=== PATIENT | male | born 1995 | race Caucasian/White ===

== ENCOUNTER 2017-07-21 13:32 | Emergency (ER) | payer OTHER ==
[~2017-07-21 13:32] MED LIST: DICL50 PO; SILV1CRE59 TOP; TRAM50 PO
[2017-07-21 13:44] VITALS: BP 135/59; PULSE 112; RESP 16; TEMP 97.6; O2SAT 100
--- NOTE | 2017-07-21 14:05 | PD ---
HPI Chief Complaint: Medical Clearance Time Seen by Provider: 14:02 Travel History International Travel<30 days: No Contact w/Intl Traveler<30days: No Traveled to known affect area: No History of Present Illness HPI 21-year-old male presents to the emergency room for evaluation of right hand pain that started earlier today. Patient is in police custody. States he was handcuffed and placed in the back of a police car. He began to beat on the back of the cage with his fists and developed pain in the right fifth metacarpal. States he has broken that bone before and it feels the same. He reports tingling around the area of pain but no distal paresthesias. He has not taken anything for symptoms. He denies any chronic medical conditions or daily medications. Up-to-date on tetanus. 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 Afebrile. Ambulatory. SKIN: Focused skin assessment warm/dry. Superficial abrasions to bilateral wrists in the distribution of the handcuffs. HEAD: Normocephalic. EYES: No scleral icterus. No injection or drainage. NECK: Supple, trachea midline. No JVD or lymphadenopathy. CARDIOVASCULAR: Regular rate and rhythm without murmurs, gallops, or rubs. RESPIRATORY: Breath sounds equal bilaterally. No accessory muscle use. MUSCULOSKELETAL: No cyanosis. No significant edema of the right hand. Full range of motion of the right hand but with pain during flexion of the fifth finger. No obvious angulation. Less than 2 second capillary refill distally. Tenderness to palpation of the right fifth metacarpal. No obvious deformity. Data Data Last Documented VS Vital Signs Date Time Temp Pulse Resp B/P (MAP) Pulse Ox O2 Delivery O2 Flow Rate FiO2 07/21/17 14:07 88 20 97 07/21/17 13:44 97.6 135/59 (84) Orders Orders Hand, Complete ([id number]) (07/21/17 ) [facility] Medical Decision Making Medical Screen Exam Complete: Yes Emergency Medical Condition: Yes Medical Record Reviewed: Yes Differential Diagnosis Abrasion, strain, contusion, fracture, muscle spasm Narrative Course 21-year-old male presents to the emergency room in police custody for evaluation of right hand pain after punching the cage in the police car. States he has broken his fist in the past and knows that it is broken. He denies any paresthesias. Physical exam reveals right hand is neurovascularly intact with less than 2 second capillary refill distally. Patient has full range of motion. No angulation. No edema, ecchymosis, or erythema. There is tenderness to palpation over the fifth metacarpal. He also has multiple abrasions around bilateral wrists and the handcuffs. X-ray shows chronic deformity with possible acute findings. Patient treated conservatively with splint. Told to follow-up with a primary care physician or return for worsening symptoms. He understands and agrees to plan. Diagnosis Primary Impression: Fracture of fifth metacarpal bone Qualified Codes: S62.366A - Nondisplaced fracture of neck of fifth metacarpal bone, right hand, initial encounter for closed fracture Referrals: Primary Care Physician Additional Instructions: Rest and drink plenty of fluids. Keep splint on until follow-up. Take ibuprofen with food as directed, as needed for pain. Apply ice to the affected area for 20 minutes at a time, as needed for pain and swelling. Follow-up with a primary care physician. Return to the emergency room for worsening symptoms. Disposition: [address] LAW ENFORCEMNT Condition: Stable Liz Ford Jul 21, 2017 14:05
[2017-07-21 14:07] VITALS: PULSE 88; RESP 20; O2SAT 97
--- NOTE | 2017-07-21 14:56 | RADRPT ---
EXAM DATE/TIME: 07/21/2017 14:21 [facility] COMPARISON: No previous studies available for comparison. INDICATIONS : Injury to right hand, pain 5th digit, and 5th metacarpal MEDICAL HISTORY : None. SURGICAL HISTORY : None. ENCOUNTER: Initial ACUITY: 1 day PAIN SCORE: 8/10 LOCATION: Right hand FINDINGS: Three view examination of the right hand demonstrates soft tissue swelling. There is slight angulatio n of the distal fifth metacarpal likely related to old fracture. Remaining bones are otherwise intact . The interphalangeal and metacarpophalangeal joints are intact. Bony mineralization is normal. CONCLUSION: Slight bowing of the distal fifth metacarpal consistent with probable old fracture. Acute component c annot be excluded. Kojo Landin MD on July 21, 2017 at 14:54 Board Certified Radiologist. This report was verified electronically.
== END 2017-07-21 15:51 ==
LOC: NEPK 13:32
DX: S62.366A Nondisplaced fracture of neck of fifth metacarpal bone, right hand, initial encounter for closed fracture (principal); W22.8XXA Striking against or struck by other objects, initial encounter; Y92.810 Car as the place of occurrence of the external cause; F31.9 Bipolar disorder, unspecified; Z72.0 Tobacco use; F19.10 Other psychoactive substance abuse, uncomplicated
CPT/HCPCS: 29125; 73130